=== PATIENT | female | born 1980 | race African-American/Black ===

== ENCOUNTER 2017-05-13 14:40 | Emergency (ER) | payer OTHER ==
--- NOTE | 2017-05-13 15:05 | PDOC ---
Rapid Medical Evaluation Time Seen by Provider: 05/13/17 15:04 Medical Evaluation: Allergies Allergy/AdvReac Type Severity Reaction Status Date / Time No Known Allergies Allergy Verified 05/13/17 14:59 05/13/17 15:04 I have performed a brief in-person evaluation of this patient. The patient presents with a chief complaint of: frontal headache Pertinent physical exam findings: HEENT: tenderness to frontal region Neuro: CN 2-12 grossly intact. I have ordered the following: n/a The patient will proceed to the ED for further evaluation. Discharge Disposition - Diagnosis Headache - Referrals Referrals: Shyam Pruitt MD [Primary Care Provider] - - Patient Instructions - Post Discharge Activity
[2017-05-13 15:06] VITALS: TEMP 98.4; BMI 41.1
--- NOTE | 2017-05-13 17:01 | PDOC ---
History of Present Illness - General History Source: Patient Exam Limitations: No Limitations - History of Present Illness Initial Comments: 05/13/17 16:57 Pt is a 37 year old female in her 8th week of with PMH preeclampsia with both prior pregnancies and oligohydramnios. Pt presents with headache, which she states feels like the headache she had with her prior episodes of preeclampsia. Pt admits to nonbloody nonbilious vomiting, which has preceded the onset of headache. Pt assumed the vomiting was part of her usual morning sickness. Pt also admits to blurry vision, which is ongoing in ED, as well as epigastric non- radiating abdomnial pain. First RN PLASTICS appointment is May 26. Pt has not been taking vitamins. <Isai Charles - Last Filed: 05/13/17 19:11> <Gabo Villatoro - Last Filed: 05/13/17 19:26> - General Chief Complaint: Headache Stated Complaint: Lightheaded Time Seen by Provider: 05/13/17 15:04 Past History - Past Medical History Asthma: No Cancer: No Cardiac Disorders: No COPD: No Diabetes: No HTN: No Seizures: No Thyroid Disease: No - Surgical History Abdominal Surgery: Yes (DANIELA MENDOZA) - Immunization History Td Vaccination: Yes TDAP Vaccination: Yes Immunization Up to Date: Yes - Suicide/Smoking/Psychosocial Hx Smoking Status: No Smoking History: Never smoked Have you smoked in the past 12 months: No Number of Cigarettes Smoked Daily: 0 Cigars Per Day: 0 Information on smoking cessation initiated: No Hx Alcohol Use: No Drug/Substance Use Hx: No Substance Use Type: None Hx Substance Use Treatment: No <Isai Charles - Last Filed: 05/13/17 19:11> <Gabo Villatoro - Last Filed: 05/13/17 19:26> - Past Medical History Allergies/Adverse Reactions: Allergies Allergy/AdvReac Type Severity Reaction Status Date / Time No Known Allergies Allergy Verified 05/13/17 14:59 Home Medications: Ambulatory Orders NK [No Known Home Medication] 05/13/17 Review of Systems - Review of Systems Able to Perform ROS?: Yes Is the patient limited Slovenian proficient: No Constitutional: Yes: Symptoms Reported, See HPI. No: Chills, Fever HEENTM: Yes: Symptoms Reported, Blurred Vision (acompanying the headache) Respiratory: Yes: Symptoms reported. No: Cough, Shortness of Breath, Stridor, Wheezing Cardiac (ROS): Yes: Symptoms Reported. No: Chest Pain, Edema, Irregular Heart Rate ABD/GI: Yes: Symptoms Reported, Nausea, Vomiting (preceding headache. Pt assumes it is morning sickness). No: Abdominal Distended, Abd. Pain w/ defecation : Yes: Symptoms Reported, Frequency. No: Burning, Dysuria, Discharge, Hematuria, Incontinence Musculoskeletal: Yes: Symptoms Reported. No: Back Pain <Isai Charles - Last Filed: 05/13/17 19:11> *Physical Exam - Vital Signs Last Vital Signs Temp Pulse Resp BP Pulse Ox 98.4 F 118 H 16 142/82 100 05/13/17 15:00 05/13/17 15:00 05/13/17 15:00 05/13/17 15:00 05/13/17 15:00 - Physical Exam General Appearance: Yes: Nourished, Appropriately Dressed, Apparent Distress, Mild Distress HEENT: positive: EOMI, [place], Normal ENT Inspection, Normal Voice, Pharynx Normal Neck: positive: Normal Thyroid, Supple Respiratory/Chest: positive: Lungs Clear, Normal Breath Sounds. negative: Chest Tender, Respiratory Distress Cardiovascular: positive: Regular Rhythm, Regular Rate. negative: Murmur Vascular Pulses: Dorsalis-Pedis (R): 2+, Doralis-Pedis (L): 2+ Musculoskeletal: negative: CVA Tenderness Neurologic: positive: Fully Oriented, Alert, Normal Mood/Affect, Normal Response , Motor Strength 5/5 <Isai Charles - Last Filed: 05/13/17 19:11> - Vital Signs Last Vital Signs Temp Pulse Resp BP Pulse Ox 98.4 F 86 16 121/83 100 05/13/17 15:00 05/13/17 19:11 05/13/17 19:11 05/13/17 19:11 05/13/17 15:00 <Gabo Villatoro - Last Filed: 05/13/17 19:26> ED Treatment Course - LABORATORY CBC & Chemistry Diagram: 05/13/17 17:40 05/13/17 17:40 <Isai Charles - Last Filed: 05/13/17 19:11> - LABORATORY CBC & Chemistry Diagram: 05/13/17 17:40 05/13/17 17:40 - ADDITIONAL ORDERS Additional order review: Laboratory Results 05/13/17 05/13/17 17:40 17:30 Sodium 138 Potassium 3.8 Chloride 104 Carbon Dioxide 26 Anion Gap 8 BUN 11 Creatinine 0.5 L Creat Clearance w eGFR > 60 Random Glucose 103 D Calcium 9.0 Total Bilirubin 0.2 D AST 17 ALT 42 D Alkaline Phosphatase 49 D Total Protein 7.5 Albumin 3.5 Beta HCG, Quant 23318.6 Urine Color Yellow Urine Appearance Clear Urine pH 5.0 Ur Specific [place] 1.034 Urine Protein 1+ H Urine Glucose (UA) Negative Urine Ketones 2+ H Urine Blood Negative Urine Nitrite Negative Urine Bilirubin Negative Urine Urobilinogen Negative Urine WBC (Auto) <1 Urine RBC (Auto) 2 Ur Epithelial Cells Rare Urine Mucus Rare 05/13/17 17:40 RBC 4.23 MCV 92.7 MCHC 32.9 RDW 13.5 MPV 9.3 Neutrophils % 78.3 Lymphocytes % 17.0 D Monocytes % 4.0 Eosinophils % 0.3 D Basophils % 0.4 - RADIOLOGY Radiology Studies Ordered: Category Date Time Status TRANSVAGINAL ULTRASOUND US [US] Stat Ultrasound 05/13/17 17:06 Completed <Gabo Villatoro - Last Filed: 05/13/17 19:26> Medical Decision Making - Medical Decision Making 05/13/17 17:22 Pt is a 37F at 8wk w/ PMH preeclampsia and oligohydramnios who presents with headache, which she feels similar to her prior episodes of preeclampsia. -r/o preeclampsia vs gestational hypertension -repeat vitals -cbc -cmp -beta-quant -UA -UCx -Type and screen -Transvaginal U/S 05/13/17 19:09 Note: pt has not yet seen her RN PLASTICS. But she had an appointment with Dr. Billie Joyce-Alton [phone] Pt had second pressure measured at 121/83 Spoke with environmental engineering technician RN PLASTICS who reassured us that the patient does not have preeclampsia and should follow up for hypertension with her doctor. Will discharge pt home. <Isai Charles - Last Filed: 05/13/17 19:11> *DC/Admit/Observation/Transfer - Discharge Dispostion Admit: No <Isai Charles - Last Filed: 05/13/17 19:11> <Gabo Villatoro - Last Filed: 05/13/17 19:26> Diagnosis at time of Disposition: Headache Qualifiers: Headache type: unspecified Headache chronicity pattern: acute headache Intractability: not intractable Qualified Code(s): R51 - Headache - Discharge Dispostion Disposition: HOME - Referrals Referrals: Shyam Pruitt MD [Primary Care Provider] - - Patient Instructions Printed Discharge Instructions: Recommendations to Help Prevent High Blood Pressure, DI for Pre-eclampsia Additional Instructions: Please take all your medications as directed. Please make sure you follow up with your RN PLASTICS as soon as possible. You must see a high-risk OB specialist given your history of pre-eclampsia. If you develop new symptoms or if your symptoms get worse, please return to the Emergency department immediately. - Post Discharge Activity
[2017-05-13 17:55] LABS: URINE APPEARANCE CLEAR; URINE BILIRUBIN NEGATIVE (NEGATIVE); URINE BLOOD NEGATIVE (NEGATIVE); URINE COLOR YELLOW; URINE GLUCOSE (UA) NEGATIVE (NEGATIVE); URINE KETONE 2+ (NEGATIVE); URINE LEUK ESTERASE NEGATIVE (NEGATIVE); URINE NITRITE NEGATIVE (NEGATIVE); URINE UROBILINOGEN NEGATIVE mg/dL (0.2-1.0)
[2017-05-13 17:59] LABS: BASO % 0.4 % (0-2.0); EOS % 0.3 % (0-4.5); LYMPH # 2.1 (8-40); MCH 30.5 pg (25.7-33.7); MCHC 32.9 g/dl (32.0-36.0); MEAN CELL VOLUME 92.7 fl (80-96); MEAN PLT VOLUME 9.3 fl (7.5-11.1); MONO # 0.5 # (3.8-10.2); NEUT # 9.7 # (42.8-82.8); NEUT % 78.3 % (42.8-82.8); PLATELET COUNT 252 K/MM3 (134-434); RDW 13.5 % (11.6-15.6); WHITE BLOOD COUNT 12.4 K/mm3 (4.0-10.0)
[2017-05-13 18:04] LABS: URINE PROTEIN 1+ (NEGATIVE)
[2017-05-13 18:26] LABS: URINE MUCUS RARE; URINE RBC 2 /hpf (0-3); URINE WBC <1 /hpf (3-5)
[2017-05-13 18:31] LABS: ALBUMIN 3.5 g/dl (3.4-5.0); ANION GAP 8 (8-16); BILIRUBIN,TOTAL 0.2 mg/dL (0.2-1.0); CO2 26 mmol/L (21-32); CREATININE 0.5 mg/dL (0.55-1.02); GLUCOSE,RANDOM 103 mg/dL (74-106); SGOT/AST 17 U/L (15-37); SGPT/ALT 42 U/L (12-78); TOT PROT 7.5 g/dl (6.4-8.2)
[2017-05-13 18:46] LABS: ALK PHOS 49 U/L (45-117)
[2017-05-13] MEDS ORDERED: ACETAMINOPHEN 1000 MG/100 ML VIAL (NON FORMULARY) IVPB ONE (18:54)
[2017-05-13 19:15] VITALS: BP 121/83; PULSE 86
--- NOTE | 2017-05-13 19:18 | PDOC ---
Attending Attestation - Resident Resident Name: Isai Charles - ED Attending Attestation I have performed the following: I have examined & evaluated the patient, The case was reviewed & discussed with the resident, I agree w/resident's findings & plan, Exceptions are as noted - HPI HPI: 05/13/17 19:26 37 F @ 8 weeks by LMP presents to ER with headache. Pt reports mild frontal headache that has progressively worsened throughout the day. She denies thunderclap, denies neck stiffness. Denies F/C. Denies N/V. She states that she has had similar headaches in the past. Pt was concerned because she suffered from pre-eclampsia during both her previous pregnancies, and one of her symptoms was headaches. She states that today's headache, however, is nowhere near as bad as it was then. Pt denies abdominal pain. Denies vaginal discharge or bleeding. - Physicial Exam PE: 05/13/17 19:29 "GENERAL: Awake, alert, and fully oriented, in no acute distress HEAD: No signs of trauma EYES: PERRLA, EOMI, sclera anicteric, conjunctiva clear ENT: Auricles normal inspection, hearing grossly normal, nares patent, oropharynx clear without exudates. Moist mucosa NECK: Nontender, no stepoffs, Normal ROM, supple, no lymphadenopathy, JVD, or masses LUNGS: Breath sounds equal, clear to auscultation bilaterally. No wheezes, and no crackles HEART: Regular rate and rhythm, normal S1 and S2, no murmurs, rubs or gallops ABDOMEN: Soft, nontender, normoactive bowel sounds. No guarding, no rebound. No masses EXTREMITIES: Normal range of motion, no edema. No clubbing or cyanosis. No cords, erythema, or tenderness NEUROLOGICAL: Cranial nerves II through XII intact. 5/5 strength and sensation in all extremities, Normal speech, normal gait SKIN: Warm, Dry, normal turgor, no rashes or lesions noted. " - Medical Decision Making 05/13/17 19:29 37 F @ 8 weeks gestation presenting with headache and slightly elevated BP 140s systolic. Pt with h/o pre-eclampsia, but this is unlikely given pt is still in 1st trimester. Pt with no abdominal complaints, no vaginal discharge or bleeding. - Labs, HCG, UA - TVUS - Recheck BP - OB consult 05/13/17 19:32 CBC,CMP WBC 12.4 K/mm3 (4.0-10.0) H 05/13/17 17:40 RBC 4.23 M/mm3 (3.60-5.2) 05/13/17 17:40 Hgb 12.9 GM/dL (10.7-15.3) 05/13/17 17:40 Hct 39.2 % (32.4-45.2) 05/13/17 17:40 MCV 92.7 fl (80-96) 05/13/17 17:40 MCH 30.5 pg (25.7-33.7) 05/13/17 17:40 MCHC 32.9 g/dl (32.0-36.0) 05/13/17 17:40 RDW 13.5 % (11.6-15.6) 05/13/17 17:40 Plt Count 252 K/MM3 (134-434) D 05/13/17 17:40 MPV 9.3 fl (7.5-11.1) 05/13/17 17:40 Neutrophils % 78.3 % (42.8-82.8) 05/13/17 17:40 Lymphocytes % 17.0 % (8-40) D 05/13/17 17:40 Monocytes % 4.0 % (3.8-10.2) 05/13/17 17:40 Eosinophils % 0.3 % (0-4.5) D 05/13/17 17:40 Basophils % 0.4 % (0-2.0) 05/13/17 17:40 Sodium 138 mmol/L (136-145) 05/13/17 17:40 Potassium 3.8 mmol/L (3.5-5.1) 05/13/17 17:40 Chloride 104 mmol/L (98-107) 05/13/17 17:40 Carbon Dioxide 26 mmol/L (21-32) 05/13/17 17:40 Anion Gap 8 (8-16) 05/13/17 17:40 BUN 11 mg/dL (7-18) 05/13/17 17:40 Creatinine 0.5 mg/dL (0.55-1.02) L 05/13/17 17:40 Creat Clearance w eGFR > 60 (>60) 05/13/17 17:40 Random Glucose 103 mg/dL (74-106) D 05/13/17 17:40 Calcium 9.0 mg/dL (8.5-10.1) 05/13/17 17:40 Total Bilirubin 0.2 mg/dL (0.2-1.0) D 05/13/17 17:40 AST 17 U/L (15-37) 05/13/17 17:40 ALT 42 U/L (12-78) D 05/13/17 17:40 Alkaline Phosphatase 49 U/L (45-117) D 05/13/17 17:40 Total Protein 7.5 g/dl (6.4-8.2) 05/13/17 17:40 Albumin 3.5 g/dl (3.4-5.0) 05/13/17 17:40 Beta HCG, Quant 30487.6 mIU/ml 05/13/17 17:40 TVUS shows IUP @ 8 weeks gestation. Repeat BP 121/83. UA shows 1+ protein Spoke with Dr. Sotelo, OB industry consultant, who states that pt is appropriate for outpt f/u, as her clinical picture does not fit pre-eclampsia at this time. Pt reassessed- states she feels well. VItals now wnl. Pt well appearing, exam normal. Clinically stable for DC. Pt states that she has f/u at [facility]. I discussed the physical exam findings, ancillary test results and final diagnoses with the patient. I answered all of the patient's questions. The patient was satisfied with the care received and felt comfortable with the discharge plan and treatment plan. The patient agrees to follow up with the primary care physician within 24-72 hours.
[2017-05-13 20:08] LABS: URINE LEUK ESTERASE Negative (NEGATIVE)
[2017-05-13] MEDS ORDERED: ACETAMINOPHEN INJECTION 100 ML IVPB ONE (20:34)
== END 2017-05-13 21:08 | disposition home or self-care (01) ==
LOC: JER 14:40
PROC: 3E033NZ Introduction of Analgesics, Hypnotics, Sedatives into Peripheral Vein, Percutaneous Approach (ICD-10-PCS; principal; 2017-05-13)
DX: O26.891 Other specified pregnancy related conditions, first trimester (principal); R51 Headache; Z3A.08 8 weeks gestation of pregnancy
CPT/HCPCS: 36415; 76830-TC; 80053; 81003; 81015; 84702; 85025; 86850; 86900; 86901; 87086; 99283-25

== ENCOUNTER 2017-12-02 14:26 | Emergency (ER) | payer OTHER ==
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
[2017-12-02 14:34] VITALS: TEMP 98.5; BMI 39.4
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
[2017-12-02] MEDS ORDERED: ACETAMINOPHEN 325 MG TABLET (FP) PO ONE (15:24)
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
[2017-12-02] MEDS ORDERED: ACETAMINOPHEN 325 MG TABLET (FP) ONE (16:19)
[2017-12-02 17:53] VITALS: BP 134/74; PULSE 87
== END 2017-12-02 17:52 | disposition home or self-care (01) ==
LOC: JER 14:26
DX: O90.89 Other complications of the puerperium, not elsewhere classified (principal); M54.2 Cervicalgia; M54.6 Pain in thoracic spine; M54.5 Low back pain; V43.62XA Car passenger injured in collision with other type car in traffic accident, initial encounter; Y92.414 Local residential or business street as the place of occurrence of the external cause; Y93.89 Activity, other specified; Y99.8 Other external cause status
CPT/HCPCS: 72050-TC-FY; 72070-TC-FY; 99281-25

== ENCOUNTER 2024-02-19 08:02 | Emergency (ER) | payer OTHER ==
[2024-02-19 08:17] VITALS: BP 153/98; PULSE 97; RESP 18; TEMP 99; BMI 38.0
[2024-02-19] MEDS ORDERED: ACETAMINOPHEN 325 MG TABLET (FP) ONE (08:47)
[2024-02-19] MEDS ORDERED: LIDOCAINE 5% TOPICAL PATCH ONE (08:47)
[2024-02-19] MEDS: LIDOCAINE 5% TOPICAL PATCH TP ONE (08:50)
[2024-02-19] MEDS: ACETAMINOPHEN 500 MG TABLET (FP) PO ONE (08:51)
[2024-02-19] MEDS ORDERED: METHOCARBAMOL 500 MG TABLET ONE (09:57)
[2024-02-19] MEDS: METHOCARBAMOL 500 MG TABLET PO ONE (10:06)
[2024-02-19] MEDS ORDERED: LIDOCAINE PATCH REMOVAL MC ONE (22:00)
== END 2024-02-19 10:50 | disposition home or self-care (01) ==
LOC: JER 08:02
DX: M54.9 Dorsalgia, unspecified (principal); W01.0XXA Fall on same level from slipping, tripping and stumbling without subsequent striking against object, initial encounter
CPT/HCPCS: 72100-TC-FY; 72170-TC-FY; 99284-25